=== PATIENT | female | born 1955 | race Hispanic/Latino ===

== ENCOUNTER 2020-03-22 10:09 | Outpatient (CLI) | payer OTHER ==
--- NOTE | 2020-03-22 12:37 | XRay Report ---
XR spine lumbosacral 2-3V INDICATION / CLINICAL INFORMATION: BACK PAIN. COMPARISON: None available. FINDINGS: BONES/JOINT(S): No evidence of fracture. Lumbar spinal alignment is preserved. Vertebral body heights are intact. There is moderate disc space height loss at L2-L3, L4-L5, and L5-S1, mild at other level s. Prominent calcified disc osteophyte complex at L4-L5. Moderate to severe lower lumbar facet arthro hector. PARASPINAL SOFT TISSUES:No significant abnormality. ADDITIONAL FINDINGS: None. IMPRESSION: Moderate lower lumbar spondylosis. No acute osseous findings. Signer Name: Nathan Wilks MD Signed: 03/22/2020 12:32 PM Workstation Name: [id number]
== END 2020-03-22 10:10 | disposition home or self-care (01) ==
LOC: XRAY 10:09
PROVIDERS: ATTEND Internal Medicine
DX: M47.817 Spondylosis without myelopathy or radiculopathy, lumbosacral region (principal)
CPT/HCPCS: 72100